=== PATIENT | male | born 1995 | race Caucasian/White ===

== ENCOUNTER 2021-03-03 18:01 | Emergency (ER) | payer SELFPAY ==
[2021-03-03 18:05] VITALS: BP 150/104; PULSE 107; RESP 17; TEMP 36.9; O2SAT 99; BMI 27.6
--- NOTE | 2021-03-03 18:41 | CM.ED ---
SOCIAL WORK Received call from Ary with Crisis prior to patient's arrival. Ary reports partial assessment completed and Crisis will come in and complete assessment once patient medically cleared. Opal Granados, [employer] MIDDLEWARE DEVELOPER, PROCUREMENT CLERK
--- NOTE | 2021-03-03 18:56 | EDS_ITS ---
HPI <Dr. 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 Per police he go t into an argument with his last night. He made comments to his boss and his that he wanted to slit his throat with a knife. He admits to previous suicide attempt in the past. He is not currently on any medications. Patient spoke with crisis over the phone and they advised him to come to the ED for further evaluation. He has had thoughts of killing himself with a knife or laying down in the middle of the road. He denies drug use. Prior similar symptoms: Yes PFSH <Dr. Yessi Greco MD - Last Filed: 03/04/21 01:42> PFSH Home Medications NK 03/03/21 [History Last Taken Unknown] Allergy/AdvReac Type Severity Reaction Status Date / Time No Known Allergies Allergy Verified 03/03/21 18:03 Social History Smoking Status: Current every day smoker ROS <Dr. Yessi Greco MD - Last Filed: 03/04/21 01:42> ROS ED Constitutional Constitutional ED: Denies fever(s) Eyes Eyes: Denies change in vision ENT ENT ED: Denies rhinorrhea or sore throat Cardiovascular Cardiovascular: Denies chest pain or palpitations Respiratory/Chest Respiratory/Chest: Denies cough or dyspnea Gastrointestinal Gastrointestinal: Denies abdominal pain, diarrhea, nausea or vomiting Genitourinary Genitourinary ED: Denies dysuria Musculoskeletal Musculoskeletal: Denies myalgias Integumentary Denies rash Neurologic Neurologic: Denies headache(s) Psychiatric Psychiatric: Reports suicidal thoughts EXAM <Dr. Yessi Greco MD - Last Filed: 03/04/21 01:42> Physical Exam Const Vital Signs: 03/03/21 18:05 03/03/21 21:38 03/04/21 00:00 Temperature 98.4 F Temperature Source Temporal Pulse Rate 107 H 77 Respiratory Rate 17 16 15 Blood Pressure 150/104 H 165/90 H Blood Pressure Mean 119 115 Pulse Ox 99 98 Oxygen Delivery Method Room Air Room Air Room Air 03/04/21 01:00 03/04/21 02:00 03/04/21 03:00 Temperature 98.1 F Temperature Source Temporal Pulse Rate 63 Respiratory Rate 16 15 15 Blood Pressure 133/88 H Blood Pressure Mean 103 Pulse Ox 98 Oxygen Delivery Method Room Air Room Air 03/04/21 04:00 Temperature Temperature Source Pulse Rate Respiratory Rate 16 Blood Pressure Blood Pressure Mean Pulse Ox Oxygen Delivery Method Room Air Positive well nourished and well developed General Appearance ED: well developed HEENT Reports normocephalic and head/scalp atraumatic Eyes PERRL and EOMs intact bilaterally Neck supple General: Negative for tenderness Chest Wall inspection of chest normal Resp normal respiratory effort and clear to auscultation bilaterally Cardio regular rate and regular rhythm no CVA tenderness Extremity normal to inspection Neuro oriented x3 Sensorium / Orientation: alert Psych Psych Narrative: suicidal ideation Mood & Affect: depressed <Dr. Vic Nichols MD - Last Filed: 03/04/21 06:05> Physical Exam Const Vital Signs: 03/03/21 18:05 03/03/21 21:38 03/04/21 00:00 Temperature 98.4 F Temperature Source Temporal Pulse Rate 107 H 77 Respiratory Rate 17 16 15 Blood Pressure 150/104 H 165/90 H Blood Pressure Mean 119 115 Pulse Ox 99 98 Oxygen Delivery Method Room Air Room Air Room Air 03/04/21 01:00 03/04/21 02:00 03/04/21 03:00 Temperature 98.1 F Temperature Source Temporal Pulse Rate 63 Respiratory Rate 16 15 15 Blood Pressure 133/88 H Blood Pressure Mean 103 Pulse Ox 98 Oxygen Delivery Method Room Air Room Air 03/04/21 04:00 Temperature Temperature Source Pulse Rate Respiratory Rate 16 Blood Pressure Blood Pressure Mean Pulse Ox Oxygen Delivery Method Room Air MDM <Dr. Yessi Greco MD - Last Filed: 03/04/21 01:42> MDM MDM Narrative Medical decision making narrative: Lab work was obtained. Covid is negative. Alcohol and tox are negative. Discussed with counseling center for evaluation. Lab Data Attestation: I reviewed the patient's lab results. Labs: Laboratory Results - last 24 hr 03/03/21 03/03/21 03/03/21 18:21 18:21 18:21 WBC 11.0 RBC 6.42 H Hgb 18.4 H* Hct 55.8 H MCV 86.9 MCH 28.7 MCHC 33.0 RDW Std Deviation 44.5 H RDW Coeff of Sondra 14.1 Plt Count 209 MPV 11.0 Immature Gran % (Auto) 0.200 Neut % (Auto) 85.8 H Lymph % (Auto) 10.5 L [place] % (Auto) 2.8 Eos % (Auto) 0.4 Baso % (Auto) 0.3 Absolute Neuts (auto) 9.5 H Absolute Lymphs (auto) 1.16 Nucleated RBC % 0 Sodium 139 Potassium 3.9 Chloride 104 Carbon Dioxide 25.0 Anion Gap 10 BUN 10 Creatinine 1.13 Estim Creat Clear Calc 104.58 Est GFR (MDRD) Af Amer 100 Est GFR (MDRD) Non-Af 82 BUN/Creatinine Ratio 8.8 L Glucose 145 H Calcium 10.0 Urine Opiates Screen Urine Methadone Screen Ur Barbiturates Screen Ur Phencyclidine Scrn Ur Amphetamines Screen U Methamphetamin-MDMA U Benzodiazepines Scrn Urine Cocaine Screen U Cannabinoids Screen Ur Drug Screen Comment Ethyl Alcohol < 3.0 03/03/21 18:45 WBC RBC Hgb Hct MCV MCH MCHC RDW Std Deviation RDW Coeff of Sondra Plt Count MPV Immature Gran % (Auto) Neut % (Auto) Lymph % (Auto) [place] % (Auto) Eos % (Auto) Baso % (Auto) Absolute Neuts (auto) Absolute Lymphs (auto) Nucleated RBC % Sodium Potassium Chloride Carbon Dioxide Anion Gap BUN Creatinine Estim Creat Clear Calc Est GFR (MDRD) Af Amer Est GFR (MDRD) Non-Af BUN/Creatinine Ratio Glucose Calcium Urine Opiates Screen NEGATIVE Urine Methadone Screen NEGATIVE Ur Barbiturates Screen NEGATIVE Ur Phencyclidine Scrn NEGATIVE Ur Amphetamines Screen NEGATIVE U Methamphetamin-MDMA NEGATIVE U Benzodiazepines Scrn NEGATIVE Urine Cocaine Screen NEGATIVE U Cannabinoids Screen NEGATIVE Ur Drug Screen Comment Ethyl Alcohol <Dr. Vic Nichols MD - Last Filed: 03/04/21 06:05> MDM MDM Narrative Medical decision making narrative: Patient medically cleared. Crisis evaluated. They were able to obtain placement at [facility]. No issues on night clerk. Lab Data Labs: Laboratory Results - last 24 hr 03/03/21 03/03/21 03/03/21 18:21 18:21 18:21 WBC 11.0 RBC 6.42 H Hgb 18.4 H* Hct 55.8 H MCV 86.9 MCH 28.7 MCHC 33.0 RDW Std Deviation 44.5 H RDW Coeff of Sondra 14.1 Plt Count 209 MPV 11.0 Immature Gran % (Auto) 0.200 Neut % (Auto) 85.8 H Lymph % (Auto) 10.5 L [place] % (Auto) 2.8 Eos % (Auto) 0.4 Baso % (Auto) 0.3 Absolute Neuts (auto) 9.5 H Absolute Lymphs (auto) 1.16 Nucleated RBC % 0 Sodium 139 Potassium 3.9 Chloride 104 Carbon Dioxide 25.0 Anion Gap 10 BUN 10 Creatinine 1.13 Estim Creat Clear Calc 104.58 Est GFR (MDRD) Af Amer 100 Est GFR (MDRD) Non-Af 82 BUN/Creatinine Ratio 8.8 L Glucose 145 H Calcium 10.0 Urine Opiates Screen Urine Methadone Screen Ur Barbiturates Screen Ur Phencyclidine Scrn Ur Amphetamines Screen U Methamphetamin-MDMA U Benzodiazepines Scrn Urine Cocaine Screen U Cannabinoids Screen Ur Drug Screen Comment Ethyl Alcohol < 3.0 03/03/21 18:45 WBC RBC Hgb Hct MCV MCH MCHC RDW Std Deviation RDW Coeff of Sondra Plt Count MPV Immature Gran % (Auto) Neut % (Auto) Lymph % (Auto) [place] % (Auto) Eos % (Auto) Baso % (Auto) Absolute Neuts (auto) Absolute Lymphs (auto) Nucleated RBC % Sodium Potassium Chloride Carbon Dioxide Anion Gap BUN Creatinine Estim Creat Clear Calc Est GFR (MDRD) Af Amer Est GFR (MDRD) Non-Af BUN/Creatinine Ratio Glucose Calcium Urine Opiates Screen NEGATIVE Urine Methadone Screen NEGATIVE Ur Barbiturates Screen NEGATIVE Ur Phencyclidine Scrn NEGATIVE Ur Amphetamines Screen NEGATIVE U Methamphetamin-MDMA NEGATIVE U Benzodiazepines Scrn NEGATIVE Urine Cocaine Screen NEGATIVE U Cannabinoids Screen NEGATIVE Ur Drug Screen Comment Ethyl Alcohol Discharge Plan Triage Chief Complaint: Suicidal ED Provider: Yessi Greco Dx/Rx/DC Orders Clinical Impression: Suicidal ideation Prescriptions: No Action NK RF: 0 Primary Care Provider: Care Physician,No Primary Referrals: Care Physician,No Primary [Primary Care Provider] - Disposition Disposition: Psychiatric Hospital or Unit Discharge Location: [facility]
[2021-03-03 19:29] LABS: Absolute Lymphocyte Count 1.16 X10^3/uL (0.83-4.51); Absolute Neutrophil Count 9.5 X10^3/uL (2.0-7.7); Basophil# 0.03 X10^3/uL; Basophil% 0.3 % (0-1); Eosinophil# 0.04 X10^3/uL; Eosinophils% 0.4 % (0-5); Lymphocyte # 1.16 X10^3/ul (0.83-4.51); Lymphocyte % 10.5 % (19-41); Mean Corpuscular Hgb 28.7 pg (27.0-32.0); Mean Corpuscular Volume 86.9 fL (80-94); Monocyte# 0.31 X10^3/uL; Monocyte% 2.8 % (0-10); NRBC Flagged by Analyzer 0 % (0-5); Neutrophil # 9.47 X10^3/uL (2.7-7.7); Neutrophil % 85.8 % (47-70); Platelet Count 209 K/mm3 (150-450); RBC Distribution Width CV 14.1 % (11.6-14.6); RBC Distribution Width SD 44.5 fl (35.1-43.9); Red Blood Count 6.42 M/mm3 (4.6-6.2)
[2021-03-03 19:31] LABS: Hematocrit 55.8 % (40-54)
[2021-03-03 19:32] LABS: Hemoglobin 18.4 g/dL (13.0-16.5)
[2021-03-03 19:39] LABS: Alcohol, Blood (Medical)-Serum < 3.0 mg/dL
[2021-03-03 19:40] LABS: Anion Gap 10 (5-15); BUN 10 mg/dL (7-18); BUN/Creat Ratio 8.8 RATIO (10-20); Chloride 104 mmol/L (98-107); Creatinine, Serum 1.13 mg/dL (0.70-1.30); EST Glomerular Filtration Rate 82 mL/min (>60); Est Glom Filt Rate - Afr Amer 100 mL/min (>60); Estimated Creatinine Clearance 104.58 ml/min; Glucose 145 mg/dL (74-106); Potassium 3.9 mmol/L (3.5-5.1); Sodium Level 139 mmol/L (136-145)
[2021-03-03 20:05] LABS: Amphetamine Urine VISTA NEGATIVE (<1000 ng/mL); Barbiturate Urine VISTA NEGATIVE (< 200 ng/mL); Benzodiazepine Urine VISTA NEGATIVE (< 200 ng/mL); Cocaine Urine VISTA NEGATIVE (< 300 ng/mL); Ecstacy Urine VISTA NEGATIVE (< 500 ng/mL); Methadone Urine VISTA NEGATIVE (< 300 ng/mL); PCP Urine VISTA NEGATIVE (< 25 ng/mL); THC Urine VISTA NEGATIVE (< 50 ng/mL); Vista UDS pH Range 5
--- NOTE | 2021-03-03 20:11 | CM.ED ---
SOCIAL WORK Call to Crisis to update patient is medically cleared. Chart faxed at this time. Opal Granados, DENTAL INSTRUCTOR, [employer]POR[employer]
--- NOTE | 2021-03-03 21:23 | CM.ED ---
SOCIAL WORK Kary from Crisis here and completed assessment. Kary reports plan is for placement and will be referring to [facility] for a one-time contract as patient is self-pay. Opal Granados, SNOW PLOW TRACTOR OPERATOR, BILL OF MATERIALS CLERK
[2021-03-03 21:38] VITALS: BP 165/90; PULSE 77; RESP 16; O2SAT 98
[2021-03-04] VITALS (9 sets, daily range): BP systolic 129–133; BP diastolic 70–88; PULSE 63; RESP 15–16; TEMP 36.6–36.7; O2SAT 97–98
--- NOTE | 2021-03-04 03:40 | ED.RN ---
MIKE FROM CRISIS CALLED, STATES THEY ARE STILL WORKING ON ONE TIME CONTRACT WITH [facility] [place].
== END 2021-03-04 07:55 ==
PROVIDERS: Emergency Provider Emergency Medicine
DX: R45.851 Suicidal ideations (principal); F17.200 Nicotine dependence, unspecified, uncomplicated
CPT/HCPCS: 80048; 80307; 82077; 85025; 87426; 99285